=== PATIENT | male | born 1940 | race Caucasian/White ===

== ENCOUNTER 2024-06-30 13:03 | Inpatient (IN) | payer OTHER ==
[2024-06-30] MEDS: PIPERACILLIN/TAZOB 3.375 GM 3.375 GM in DEXTROSE 5%-WATER - 50 ML IVPB ONE (14:30)
[2024-06-30] MEDS: SODIUM CHLORIDE 0.9% 1000 ML INFUS.BAG IV STA (14:30)
[2024-06-30] MEDS: ACETAMINOPHEN 1000 MG/100 ML BAG IVPB ONE (14:30)
[2024-06-30] MEDS ORDERED: PIPERACILLIN/TAZOB 3.375 GM 3.375 GM/50 ML BAG IVPB ONE (14:48)
[2024-06-30] MEDS ORDERED: ACETAMINOPHEN INJECTION 100 ML ONE (14:48)
[2024-06-30 14:57] LABS: INR 1.27 (0.83-1.09); PROTHROMBIN TIME (PATIENT) 13.8 SEC (9.7-13.0)
[2024-06-30 15:00] LABS: ACTIVATED PTT 30.3 SECONDS (25.2-36.5)
[2024-06-30 15:08] LABS: POTASSIUM 5.2 mmol/L (3.5-5.1)
[2024-06-30] MEDS ORDERED: VANCOMYCIN 1 GM PREMIX (F) 1 GM/200 ML BAG ONE (15:11)
[2024-06-30 15:12] LABS: ALBUMIN 2.8 g/dl (3.4-5.0); BLOOD UREA NITROGEN 36.6 mg/dL (7-18); CALCIUM 8.4 mg/dL (8.5-10.1); HEMATOCRIT 47.8 % (35.4-49); HEMOGLOBIN 15.9 GM/dL (11.7-16.9); MCH 31.2 pg (25.7-33.7); MCHC 33.2 g/dl (32.0-35.9); MEAN PLT VOLUME 8.2 fl (7.5-11.1); PLATELET COUNT 187 10^3/uL (134-434); RBC 5.09 M/mm3 (4.00-5.60); RDW 15.4 % (11.9-15.9); WHITE BLOOD COUNT 8.5 K/mm3 (4.0-10.0)
[2024-06-30 15:13] LABS: EPI CELLS 13 /uL (0-25.1); HYALINE CASTS 1 /uL (0-3.1); URINE APPEARANCE CLEAR; URINE BACTERIA 3 /uL (0-1359); URINE BILIRUBIN NEGATIVE (NEGATIVE); URINE COLOR YELLOW; URINE GLUCOSE (UA) NEGATIVE (NEGATIVE); URINE KETONE NEGATIVE (NEGATIVE); URINE LEUK ESTERASE NEGATIVE (NEGATIVE); URINE NITRITE NEGATIVE (NEGATIVE); URINE PROTEIN 1+ (NEGATIVE); URINE RBC 33 /uL (0-23.9); URINE UROBILINOGEN 0.2 mg/dL (0.2-1.0); URINE WBC 10 /uL (0-25.8)
[2024-06-30 15:14] LABS: VENOUS BASE EXCESS 1.1 mmol/L (-2-2); VENOUS O2 SATURATION 96.1 % (70-80); VENOUS PH 7.258 (7.310-7.410)
[2024-06-30 15:17] LABS: BILIRUBIN,TOTAL 0.6 mg/dL (0.2-1); TOT PROT 7.6 g/dl (6.4-8.2)
[2024-06-30] MEDS: VANCOMYCIN 1,000 MG in DEXTROSE 5%-WATER - 250 ML IVPB ONE (15:17)
[2024-06-30 15:21] LABS: VENOUS PCO2 70.7 mmHg (38-52)
[2024-06-30 15:39] LABS: CREATININE 1.4 mg/dL (0.55-1.3)
[2024-06-30] MEDS: SODIUM CHLORIDE 0.9% 500 ML INFUS.BAG IV ONE (16:26)
[2024-06-30 16:39] LABS: ANISOCYTOSIS 0; MACROCYTOSIS 0
[2024-06-30] MEDS: SODIUM CHLORIDE 1,000 ML IV SCH (17:21)
[2024-06-30] MEDS: methylPREDNISolone NA SUCC 40 MG/1 ML VIAL IVPUSH SCH (17:31)
[2024-06-30] MEDS: PANTOPRAZOLE 40 MG TABLET PO SCH (17:31)
[2024-06-30 17:48] LABS: HEMOGLOBIN 13.7 GM/dL (11.7-16.9); MCH 30.8 pg (25.7-33.7); RBC 4.45 M/mm3 (4.00-5.60)
[2024-06-30 17:58] LABS: MCHC 32.6 g/dl (32.0-35.9); MEAN CELL VOLUME 94.4 fl (80-96); MEAN PLT VOLUME 8.7 fl (7.5-11.1); PLATELET COUNT 161 10^3/uL (134-434); RDW 15.9 % (11.9-15.9); WHITE BLOOD COUNT 7.3 K/mm3 (4.0-10.0)
[2024-06-30 18:04] LABS: CHLORIDE 110 mmol/L (98-107); SODIUM 138 mmol/L (136-145)
[2024-06-30 18:07] LABS: BLOOD UREA NITROGEN 34.8 mg/dL (7-18); CO2 24 mmol/L (21-32); GLUCOSE,RANDOM 201 mg/dL (74-106)
[2024-06-30 18:10] LABS: CREATININE 1.5 mg/dL (0.55-1.3); SGOT/AST 50 U/L (15-37); SGPT/ALT 26 U/L (13-61)
[2024-06-30 18:11] LABS: ALBUMIN 2.2 g/dl (3.4-5.0); ANION GAP 4 mmol/L (4-13); BILIRUBIN,TOTAL 0.5 mg/dL (0.2-1); CALCIUM 6.9 mg/dL (8.5-10.1); POTASSIUM 6.3 mmol/L (3.5-5.1); TOT PROT 6.3 g/dl (6.4-8.2)
[2024-06-30 18:12] LABS: ALK PHOS 59 U/L (45-117)
[2024-06-30] MEDS: SODIUM CHLORIDE 0.45% 1,000 ML IV SCH (19:51)
[2024-06-30] MEDS ORDERED: ALBUTEROL SO4 2.5/IPRATROPIUM 0.5 INH SOL 3 ML VIAL.NEB. NEB ONE (20:25)
[2024-06-30] MEDS: ALBUTEROL SO4 2.5/IPRATROPIUM 0.5 INH SOL 3 ML VIAL.NEB. NEB SCH (20:28)
[2024-06-30] MEDS: SODIUM CHLORIDE 250 ML IV STA (20:28)
[2024-07-01] MEDS ORDERED: methylPREDNISolone NA SUCC 40 MG/1 ML VIAL ONE (02:01)
[2024-07-01 03:42] VITALS: BMI 24.5
[2024-07-01 07:27] LABS: POTASSIUM 4.7 mmol/L (3.5-5.1)
[2024-07-01 07:31] LABS: CALCIUM 7.4 mg/dL (8.5-10.1)
[2024-07-01 07:32] LABS: ALBUMIN 2.3 g/dl (3.4-5.0)
[2024-07-01 07:36] LABS: CREATININE 1.6 mg/dL (0.55-1.3)
[2024-07-01 07:37] LABS: BILIRUBIN,TOTAL 0.4 mg/dL (0.2-1)
[2024-07-01] MEDS: AZITHROMYCIN IVPB 500 MG/250 ML BAG IVPB SCH (09:54)
[2024-07-01] MEDS: CEFTRIAXONE 1 G/50 ML PREMIX 50 ML IVPB SCH (09:55)
[2024-07-01 11:39] LABS: ALLENS TEST POSITIVE; ARTERIAL BLD GAS O2 SATURATION 99.5 % (95-98); ARTERIAL BLOOD GAS BASE EXCESS -0.2 mmol/L (-2-2); ARTERIAL BLOOD GAS PO2 241.1 mmHg (80-100); ARTERIAL BLOOD GAS pH 7.325 (7.350-7.450)
[2024-07-01 11:40] LABS: VENT MODE S/T; VENT RATE 16
[2024-07-02] MEDS: DOXYCYCLINE INJECTION 100 MG in DEXTROSE 5%-WATER 100 ML IVPB SCH (09:53)
[2024-07-02 12:41] LABS: BASO % 0.2 % (0-2.0); HEMATOCRIT 46.1 % (35.4-49); HEMOGLOBIN 15.3 GM/dL (11.7-16.9); MCHC 33.1 g/dl (32.0-35.9); MEAN CELL VOLUME 93.7 fl (80-96); MEAN PLT VOLUME 7.9 fl (7.5-11.1); MONO % 4.1 % (3.8-10.2); NEUT % 90.7 % (42.8-82.8); PLATELET COUNT 161 10^3/uL (134-434); RBC 4.92 M/mm3 (4.00-5.60); RDW 15.5 % (11.9-15.9); WHITE BLOOD COUNT 7.4 K/mm3 (4.0-10.0)
[2024-07-02 13:32] LABS: POTASSIUM 4.5 mmol/L (3.5-5.1)
[2024-07-02 13:34] LABS: ALBUMIN 2.7 g/dl (3.4-5.0); BLOOD UREA NITROGEN 35.2 mg/dL (7-18); CALCIUM 8.2 mg/dL (8.5-10.1)
[2024-07-02 13:39] LABS: BILIRUBIN,TOTAL 0.3 mg/dL (0.2-1); TOT PROT 7.1 g/dl (6.4-8.2)
[2024-07-02 20:49] VITALS: RESP 18
[2024-07-03] MEDS: predniSONE 20 MG TABLET (UD) PO SCH (11:30)
[2024-07-04] MEDS: ACETAMINOPHEN 325 MG TABLET (FP) PO PRN (09:45)
[2024-07-04 14:53] VITALS: TEMP 98.6
[2024-07-04 17:02] VITALS: BP 135/77; PULSE 65
== END 2024-07-04 18:56 | DRG 177 ==
LOC: JER 13:03 → OBSVTOIN 16:24 → JERBED 16:24 → J4W 07-01 02:58
PROVIDERS: ADMIT Family Medicine; ATTEND Family Medicine
DX: J69.0 Pneumonitis due to inhalation of food and vomit (principal); J96.01 Acute respiratory failure with hypoxia; N17.9 Acute kidney failure, unspecified; J45.901 Unspecified asthma with (acute) exacerbation; I24.89 Other forms of acute ischemic heart disease; J44.0 Chronic obstructive pulmonary disease with (acute) lower respiratory infection; E87.5 Hyperkalemia; L89.611 Pressure ulcer of right heel, stage 1; L89.621 Pressure ulcer of left heel, stage 1; N40.0 Benign prostatic hyperplasia without lower urinary tract symptoms; I10 Essential (primary) hypertension; R00.0 Tachycardia, unspecified; I35.0 Nonrheumatic aortic (valve) stenosis; I44.4 Left anterior fascicular block; J44.9 Chronic obstructive pulmonary disease, unspecified
CPT/HCPCS: 0241U-QW; 36415; 36600; 71045-TC-FY; 71250-TC; 76775-TC; 80053; 81003; 82803; 83605; 83880; 84484; 85025; 85027; 85610; 85730; 86850; 86900; 86901; 87040; 87086; 87635; 87899; 93005; 93010; 93306-TC; 94640; 94660; 99285-25; J0131